=== PATIENT | female | born 1965 | race Caucasian/White ===

== ENCOUNTER → 2022-12-28 16:28 | Outpatient (CLI) | payer BC, SELFPAY ==
--- NOTE | 2022-12-28 16:31 | DI.MG.S_ITS ---
BILATERAL DIGITAL SCREENING MAMMOGRAM 3D/2D WITH CAD: 12/28/2022 CLINICAL: Routine screening. Family history of breast cancer. Comparison is made to exams dated: 01/13/2019 mammogram, 04/26/2017 mammogram, and 10/24/2016 mammogram - outside location. There are scattered areas of fibroglandular density in both breasts (category b / 25%-50% glandular tissue). Current study was also evaluated with a Computer Aided Detection (CAD) system. There is an oval equal density focal asymmetry with coarse calcifications in the right breast at 4 o'clock posterior depth. This is more prominent and increased in size. There is an oval equal density focal asymmetry with coarse calcifications in the left breast at 1 o'clock in the retroareolar region. This is more prominent and increased in size. No other significant masses or calcifications are seen in either breast. IMPRESSION: INCOMPLETE: NEEDS ADDITIONAL IMAGING EVALUATION The oval equal density focal asymmetry in the right breast at 4 o'clock posterior depth is indeterminate. Additional views with possible ultrasound are recommended. The oval equal density focal asymmetry in the left breast at 1 o'clock in the retroareolar region is indeterminate. Additional views with possible ultrasound are recommended. Based on the Tyrer Cuzick model (a risk assessment model) the patient's lifetime risk is 11.1% and her 10 year risk is 4.1%. According to the ACR, ACS, and NCCN guidelines, an annual breast MRI exam along with mammogram is recommended if the patient's lifetime risk is 20% or greater. This exam was interpreted at Station ID: [id number]. NOTE: For mammograms, a report in lay terms will be sent to the patient. Approximately 15% of breast malignancies will not be visualized mammographically. In the management of a palpable breast mass, a negative mammogram must not discourage biopsy of a clinically suspicious lesion. Electronically Signed By: Javan Dorsey M.D. aty/:12/29/2022 07:21:06 letter sent: Additional Imaging Needed ACR BI-RADS Category 0: Incomplete 3340F
== END ==
PROVIDERS: Referring Provider Family Medicine; Visit Provider Family Medicine
DX: Z12.31 Encounter for screening mammogram for malignant neoplasm of breast (principal); Z80.3 Family history of malignant neoplasm of breast
CPT/HCPCS: 77063; 77067

== ENCOUNTER → 2023-02-23 10:08 | Outpatient (CLI) | payer BC, SELFPAY ==
--- NOTE | 2023-02-23 | DI.MG.S_ITS ---
BILATERAL DIGITAL DIAGNOSTIC MAMMOGRAM 3D/2D: 02/23/2023 CLINICAL: Bilateral add views. Comparison is made to exams dated: 12/28/2022 mammogram - [facility], 01/13/2019 mammogram, and 04/26/2017 mammogram - outside location. There are scattered areas of fibroglandular density in both breasts (category b / 25%-50% glandular tissue). There is an oval equal density focal asymmetry with coarse calcifications in the right breast at 4 o'clock posterior depth. This is seen in additional views. There is an oval equal density focal asymmetry with coarse calcifications in the left breast at 1 o'clock anterior depth. This is seen in additional views. No other significant masses or calcifications are seen in either breast. IMPRESSION: INCOMPLETE: NEEDS ADDITIONAL IMAGING EVALUATION The oval equal density focal asymmetry in the right breast at 4 o'clock posterior depth is indeterminate. An ultrasound is recommended. The oval equal density focal asymmetry in the left breast at 1 o'clock anterior depth is indeterminate. An ultrasound is recommended. US will be performed and dictated separately. Based on the Tyrer Cuzick model (a risk assessment model) the patient's lifetime risk is 9.1% and her 10 year risk is 3.3%. According to the ACR, ACS, and NCCN guidelines, an annual breast MRI exam along with mammogram is recommended if the patient's lifetime risk is 20% or greater. This exam was interpreted at Station ID: [id number]. NOTE: For mammograms, a report in lay terms will be sent to the patient. Approximately 15% of breast malignancies will not be visualized mammographically. In the management of a palpable breast mass, a negative mammogram must not discourage biopsy of a clinically suspicious lesion. Electronically Signed By: Sahil Olvera M.D. acr/:02/23/2023 11:01:24 Entry: aa - 02/27/2023 11:35:24 ACR BI-RADS Category 0: Incomplete 3340F
--- NOTE | 2023-02-23 | DI.US.S_ITS ---
ULTRASOUND OF RIGHT BREAST: 02/23/2023 CLINICAL: Patient returns today to evaluate an asymmetry in the right breast. Comparison is made to exams dated: 02/23/2023 mammogram, 12/28/2022 mammogram - [facility], 01/13/2019 mammogram, 04/26/2017 mammogram, and 10/24/2016 mammogram - outside location. Color flow ultrasound of the right breast was performed. Dewitt scale images of the real-time examination were reviewed. In the right breast 5:00 position 13 cm from the nipple a 0.7 x 0.6 x 0.4 cm oval well-circumscribed mass with no posterior acoustic shadowing and internal calcification is seen. On ultrasound this has a probably appearance and additionally upon further detailed review of the prior mammogram in 2019 it appears this finding was previously present as well. The prior mammogram at a different technique but when windowed appears similar. IMPRESSION: PROBABLY BENIGN The right breast finding on screening mammogram has a benign ultrasound appearance and is probably stable compared to a prior mammogram as detailed above. A follow-up mammogram and an ultrasound in 6 months is recommended to demonstrate stability. This exam was interpreted at Station ID: [id number]. Electronically Signed By: Sahil Olvera M.D. acr/:02/23/2023 11:55:36 Entry: aa - 02/27/2023 11:35:55 Ultrasound BI-RADS: 3 Probably benign
--- NOTE | 2023-02-23 11:00 | DI.US.S_ITS ---
LIMITED ULTRASOUND OF LEFT BREAST: 02/23/2023 CLINICAL: Patient returns today to evaluate a focal asymmetry in the left breast. Comparison is made to exams dated: 02/23/2023 mammogram, 12/28/2022 mammogram - [facility], 01/13/2019 mammogram, 04/26/2017 mammogram, and 10/24/2016 mammogram - outside location. Color flow ultrasound of the left breast 1 o'clock region was performed. Dewitt scale images of the real-time examination were reviewed. In the left breast 1:00 position no abnormality is seen with ultrasound. Normal-appearing breast tissue is identified. Further detailed review of the prior mammogram demonstrates the current finding to probably have been present on the 2019 mammogram which was performed at a different facility with a different technique. When windowed, the same finding is identified and appears stable. Windowed images from the prior study were saved as corbett images. IMPRESSION: PROBABLY BENIGN No ultrasound abnormality is identified. The mammographic abnormality is probably stable compared to 2019 however the appearance is slightly different likely due to differences in technique. A follow-up mammogram and an ultrasound in 6 months is recommended to demonstrate stability. This exam was interpreted at Station ID: [id number]. Electronically Signed By: Sahil Olvera M.D. acr/:02/23/2023 11:59:55 letter sent: Followup Recommended Ultrasound BI-RADS: 3 Probably benign
== END ==
LOC: MAMMO 10:09
PROVIDERS: PCP Family Medicine; Referring Provider Family Medicine; Visit Provider Family Medicine
DX: R92.8 Other abnormal and inconclusive findings on diagnostic imaging of breast (principal); N64.89 Other specified disorders of breast
CPT/HCPCS: 76642; 77066; G0279

== ENCOUNTER → 2023-10-05 10:02 | Outpatient (CLI) | payer BC, SELFPAY ==
--- NOTE | 2023-10-05 | DI.MG.S_ITS ---
BILATERAL DIGITAL DIAGNOSTIC MAMMOGRAM 3D/2D: 10/05/2023 CLINICAL: Patient returns for a 6 month follow up of bilateral breasts. Comparison is made to exams dated: 02/23/2023 mammogram, 12/28/2022 mammogram - [facility], 01/13/2019 mammogram, 04/26/2017 mammogram - outside location, 02/23/2023 ultrasound, and 02/23/2023 ultrasound - [facility]. There are scattered areas of fibroglandular density in both breasts (category b / 25%-50% glandular tissue). There is a stable oval focal asymmetry with punctate calcifications in the right breast at 4 o'clock posterior depth. There is a stable oval focal asymmetry with punctate calcifications in the left breast at 1 o'clock anterior depth. Not seen on prior ultrasound. No other significant masses or calcifications are seen in either breast. IMPRESSION: INCOMPLETE: NEEDS ADDITIONAL IMAGING EVALUATION The stable oval focal asymmetry in the right breast at 4 o'clock posterior depth is indeterminate. -A targeted ultrasound is recommended and will immediately follow. The stable oval focal asymmetry in the left breast at 1 o'clock anterior depth is probably benign. -Follow up mammogram in 6 months is recommended. Based on the Tyrer Cuzick model (a risk assessment model) the patient's lifetime risk is 9.1% and her 10 year risk is 3.3%. According to the ACR, ACS, and NCCN guidelines, an annual breast MRI exam along with mammogram is recommended if the patient's lifetime risk is 20% or greater. This exam was interpreted at Station ID: [id number]. NOTE: For mammograms, a report in lay terms will be sent to the patient. Approximately 15% of breast malignancies will not be visualized mammographically. In the management of a palpable breast mass, a negative mammogram must not discourage biopsy of a clinically suspicious lesion. Electronically Signed By: Trent Rowan M.D. slc/:10/05/2023 11:04:39 ACR BI-RADS Category 0: Incomplete 3340F
--- NOTE | 2023-10-05 10:49 | DI.US.S_ITS ---
LIMITED ULTRASOUND OF RIGHT BREAST AND AXILLA: 10/05/2023 CLINICAL: Patient returns for a 6 month follow up of the right breast. Comparison is made to exams dated: 10/05/2023 mammogram, 02/23/2023 ultrasound, 02/23/2023 mammogram, 12/28/2022 mammogram - [facility], 01/13/2019 mammogram, and 04/26/2017 mammogram - outside location. Color flow and real-time ultrasound of the right breast 4 o'clock, and axilla regions were performed. Dewitt scale images of the real-time examination were reviewed. There is a 1.4 cm round enlarged lymph node in the right axillary tail. This round enlarged lymph node is hyperechoic. There also is a stable 0.5 cm x 0.3 cm x 0.2 cm oval cyst in the right breast at 4 o'clock posterior depth 10 cm from the nipple. This oval cyst is hypoechoic. This correlates with mammography findings. Color flow imaging demonstrates that there is no vascularity present. IMPRESSION: SUSPICIOUS OF MALIGNANCY The 1.4 cm round enlarged lymph node in the right axilla is at a low suspicion for malignancy. -An ultrasound guided biopsy is recommended. Discussed options of ultrasound imaging follow-up and biopsy. Patient prefers biopsy. The stable 0.5 cm oval cyst in the right breast at 4 o'clock posterior depth is probably benign. -A follow-up mammogram and an ultrasound in 6 months is recommended to demonstrate stability. -Mammogram will also be due for contralateral left breast in 6 months. Exam findings were discussed with the patient. This exam was interpreted at Station ID: [id number]. Electronically Signed By: Trent Rowan M.D. [facility] [place]/:10/05/2023 12:14:36 letter sent: Biopsy Required Ultrasound BI-RADS: 4a Low suspicion for malignancy
== END ==
PROVIDERS: PCP Family Medicine; Referring Provider Family Medicine; Visit Provider Family Medicine
DX: R92.8 Other abnormal and inconclusive findings on diagnostic imaging of breast (principal); N60.01 Solitary cyst of right breast; R59.0 Localized enlarged lymph nodes; R92.323 Mammographic fibroglandular density, bilateral breasts
CPT/HCPCS: 76642; 77066; G0279

== ENCOUNTER → 2023-10-26 14:07 | Outpatient (CLI) | payer BC, SELFPAY ==
--- NOTE | 2023-10-26 | DI.US.S_ITS ---
ULTRASOUND GUIDED BIOPSY RIGHT BREAST WITH MARKING DEVICE INSERTED: 10/26/2023 CLINICAL: Right axillary node biopsy. PATIENT CONSENT: Risks (minor bleeding, infection, vasovagal reaction and repeat procedure), benefits and alternatives were explained to the patient and written informed consent was obtained. Correlation is made to exams dated: 10/26/2023 mammogram, 10/05/2023 ultrasound, 10/05/2023 mammogram, 02/23/2023 ultrasound, 02/23/2023 mammogram, and 12/28/2022 mammogram - [facility]. An ultrasound guided biopsy using real-time ultrasound was performed for the lymph node located in the right axilla. The skin was prepped in the usual manner. The abnormality was approached from the lateral aspect. An 18 gauge biopsy needle was placed adjacent to the abnormality under ultrasound guidance. Once the needle was documented to be in the correct location, four specimens were obtained using the ki workno biopsy device. The patient received additional local anesthetic during the procedure. A Vision clip was inserted into the biopsy cavity. Post procedure imaging demonstrates the location device at the targeted area. The specimens were sent to the laboratory for pathological analysis. The biopsy was performed by Dr. Buchanan on 10/26/2023. IMPRESSION: ULTRASOUND GUIDED BIOPSY BENIGN Successful ultrasound guided biopsy of right axillary lymph node performed by Dr. Buchanan. Pathology indicates benign lymph node (LN). Pathology results are concordant with imaging findings. Recommend follow up left breast mammogram and ultrasound in 6 months for probably benign findings described on prior report 10/05/2023. Patient will be due for bilateral mammogram at that time. Future imaging is recommended as follows: 04/08/2024 mammogram and an ultrasound. This exam was interpreted at Station ID: [id number]. Raven Vera M.D., Ph.D. eb/:11/06/2023 17:09:10
--- NOTE | 2023-10-26 | PATH_ITS ---
[facility] Accession Number: [id number] No. of containers..01 Tissue . 01 Material submitted: . lymph node - RIGHT AXILLA LYMPH NODE . 01 Diagnosis: A: LYMPH NODE, RIGHT AXILLA, CORE BIOPSY: Small sample consisting of unremarkable lymphoid tissue, negative for metastatic carcinoma. See comment and microscopic description. [facility] 10/31/2023 1610 Local . 01 Comment: Given the limited tissue volume, if suspicion remains high for possible malignancy in an unsampled area, complete krystyna excision may be considered in the right clinical setting. Correlation with clinical and radiologic findings is recommended. . 01 Electronically signed: . Larry Gibson MD, Pathologist NPI- [id number] . 01 Gross description: . Received in formalin with two identifiers and right axilla lymph node, are three dacosta needle cores 0.3 to 0.7 cm in greatest dimension. Submitted entirely in cassette A1. ([id number]) /[facility] 10/27/2023 2108 Local . 01 Microscopic: . - Histologic sections demonstrate small fragments of lymphoid tissue, too limited to adequately evaluate architecture, consisting of fwcsf-jh-twpbgvweztjx sized lymphocytes. Immunohistochemical stains were indicated and performed with adequate controls. - Lymphocytes consist predominantly of T-cells which are highlighted by CD3, CD5 and BCL-2. B-cells are fewer, and highlighted by PAX-5, while negative for CD5, Cyclin D1, CD10, and BCL-6. B-cells are predominantly found in small nodules, without germinal centers. CD21 highlights follicular dendritic cell meshworks. Ki67 proliferation index is uniformly low. - Sections are negative for Hodgkin/RS-cells, abnormal prominent fibrotic bands, metastatic carcinoma (as supported by negative LALITO immunostain), and foreign bodies. - As part of ongoing quality assurance supervisor trim, select slides were reviewed by Dr. Favian Mayorga who agrees with the interpretation. Technical Note: The immunohistochemical stains reported were performed at [facility] ([address] [place], [place] [address] [address], [facility] [address]). They were developed and their performance characteristics determined by [employer] They have not been cleared or approved by the U.S. Food and Drug Administration, although such approval is not required for analyte-specific reagents of this type. . 01 Pathologist provided ICD-10: R92.8, R59.9 . 01 CPT . 986515, B27327, S63233 Specimen Comment: A courtesy copy of this report has been sent to [facility] Performed at: [address], [place], [place] [id number] MD Lobito Rogers MD Phone: [phone]
--- NOTE | 2023-10-26 14:09 | DI.MG.S_ITS ---
UNILATERAL RIGHT DIGITAL DIAGNOSTIC MAMMOGRAM 3D/2D POST-PROCEDURE IMAGING FOR MARKER PLACEMENT: 10/26/2023 CLINICAL: Right post clip. Comparison is made to exams dated: 10/05/2023 mammogram, 02/23/2023 mammogram, and 12/28/2022 mammogram - [facility]. There are scattered areas of fibroglandular density in the right breast (category b / 25%-50% glandular tissue). There is a marker clip in the appropriate position in the right axillary region seen on the craniocaudal view only. This marker clip placement is at the biopsy site. IMPRESSION: POST PROCEDURE MAMMOGRAM FOR MARKER PLACEMENT There was a successful marker clip placement in the right axillary region seen on the craniocaudal view only. Future imaging is recommended as follows: 04/08/2024 mammogram and an ultrasound. Based on the Tyrer Cuzick model (a risk assessment model) the patient's lifetime risk is 9.1% and her 10 year risk is 3.3%. According to the ACR, ACS, and NCCN guidelines, an annual breast MRI exam along with mammogram is recommended if the patient's lifetime risk is 20% or greater. This exam was interpreted at Station ID: [id number]. NOTE: For mammograms, a report in lay terms will be sent to the patient. Approximately 15% of breast malignancies will not be visualized mammographically. In the management of a palpable breast mass, a negative mammogram must not discourage biopsy of a clinically suspicious lesion. Electronically Signed By: Opal Buchanan M.D. [facility]/:10/26/2023 21:30:26 ACR BI-RADS Category Post-procedure mammogram for marker placement
== END ==
LOC: US 14:08
PROVIDERS: PCP Family Medicine; Referring Provider Family Medicine; Visit Provider Family Medicine
DX: R92.8 Other abnormal and inconclusive findings on diagnostic imaging of breast (principal); R92.321 Mammographic fibroglandular density, right breast
CPT/HCPCS: 38505; 76942; 77065

== ENCOUNTER → 2023-12-14 14:36 | Outpatient (CLI) | payer BC, SELFPAY ==
--- NOTE | 2023-12-14 14:36 | DI.US.S_ITS ---
PROCEDURE: US THYROID INDICATIONS: MULTINODULAR THYROID/HYPERTHYROIDISM TECHNIQUE: Real-time scanning was performed of the thyroid gland, with image documentation. COMPARISON: None. FINDINGS: Thyroid: Right lobe measures 7.4 x 2.5 x 2.4 cm. Left lobe measures 8.8 x 2.8 x 2.4 cm. Isthmus is 0.34 cm thick. Echotexture is heterogeneous. Nodule number: 1 Location: Mid to lower pole right thyroid lobe Size: 2.0 x 1.4 x 1.6 cm Composition: Predominantly solid Echogenicity: Hyperechoic Shape: Wider than tall Margins: Smooth Echogenic foci: None nai points: 3 ACR TI-RADS category: Mildly suspicious Nodule number: 2 Location: Lower pole right thyroid lobe Size: 1.1 x 1.1 x 0.8 Composition: Predominantly solid Echogenicity: Isoechoic Shape: Wider than tall Margins: Smooth Echogenic foci: None Total points: 3 ACR TI-RADS category: Mildly suspicious Nodule number: 3 Location: Lower pole right thyroid lobe Size: 1.5 x 1.7 x 1.4 Composition: Predominantly solid Echogenicity: Isoechoic Shape: Wider than tall Margins: Smooth Echogenic foci: None Total points: 3 ACR TI-RADS category: Mildly suspicious Nodule number: 4 Location: Lower pole left thyroid lobe Size: 2.5 x 1.6 x 1.6 cm Composition: Predominantly solid Echogenicity: Hypoechoic Shape: Wider than tall Margins: Lobulated Echogenic foci: Punctate Total points: 8 ACR TI-RADS category: Highly suspicious Nodule number: 5 Location: Lower pole left thyroid lobe Size: 1.9 x 2.1 x 1.3 cm Composition: Predominantly solid Echogenicity: Hypoechoic Shape: Wider than tall Margins: Lobulated Echogenic foci: None Total points: 6 ACR TI-RADS category: Moderately suspicious IMPRESSION: Enlarged thyroid gland with heterogeneous thyroid parenchymal echotexture and multiple solid nodules as described above. Suggest fine-needle aspiration of the 2 left thyroid lobe nodules for further evaluation. ACR TI-RADS definitions and recommendations: TI-RADS 1 (benign): 0 points. FNA not needed. TI-RADS 2 (not suspicious): 2 points. FNA not needed. TI-RADS 3 (mildly suspicious): 3 points. * FNA if 2.5 cm or larger, follow up if 1.5 cm or larger (at 1, 3, and 5 years). TI-RADS 4 (moderately suspicious): 4-6 points. * FNA if 1.5 cm or larger, follow up if 1 cm or larger (at 1, 2, 3, and 5 years). TI-RADS 5 (highly suspicious): 7 points or more. * FNA if 1 cm or larger, follow up if 0.5 cm or larger (every year for 5 years). Dictated by: Tera Wilburn M.D. on 12/14/2023 at 17:00 Approved by: Tera Wilburn M.D. on 12/14/2023 at 17:04
== END ==
PROVIDERS: PCP Family Medicine; Referring Provider Family Medicine; Visit Provider Family Medicine
DX: E04.2 Nontoxic multinodular goiter (principal); E05.90 Thyrotoxicosis, unspecified without thyrotoxic crisis or storm
CPT/HCPCS: 76536

== ENCOUNTER → 2024-01-18 14:29 | Outpatient (CLI) | payer BC, SELFPAY ==
--- NOTE | 2024-01-18 | PATH_ITS ---
Note [facility] Accession Number: [id number] TESTS RESULT FLAG UNITS REF RANGE LAB Clinician Provided Cytology Information No. of containers..01 Other (Miscellaneous) No. of containers..06 Previously Prepared Cytology Slide Source: LEFT THYROID NODULE #5 DIAGNOSIS: LEFT THYROID NODULE #5 NEGATIVE FOR MALIGNANT CELLS. B[place] CATEGORY II. SPECIMEN CONSISTS OF BENIGN FOLLICULAR CELLS (MANY WITH ONCOCYTIC FEATURES), RARE HEMOSIDERIN-LADEN MACROPHAGES, COLLOID, AND BLOOD. 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 Pathologist ICD10: 01 E04.1 Signed out by: Constance Tellez MD, Pathologist NPI- [id number] Performed by: Thomas Villagomez, Counter Professional ([facility]) Gross description: 30 CC, COLORLESS, CLEAR RECIEVED: IN CYTOLYT WITH 8 ALCOHOL FIXED AND 8 QUICK STAINED SLIDES ALSO 1 RNA VIAL WILL ON 03-13-2024.VO /VDU 01/21/2024 1047 Local FLAG LEGEND: L-Low Normal,H-High Normal,LL-Alert Low,HH-Alert High <-Panic Low,>-Panic High,A-Abnormal,AA-Critical Abnormal Performed at: 01 =[facility], [place] [address] Lobito Rogers MD, Performed at: [address], [place], [place] [id number] MD Lobito Rogers MD Phone: [phone]
--- NOTE | 2024-01-18 14:30 | DI.US.S_ITS ---
PROCEDURE: US FINE NEEDLE ASPIRATION INDICATIONS: LEFT THYROID NODULES TECHNIQUE: The indications, alternatives, benefits, risks, and complications of the procedure were explained to the patient. Written informed consent was obtained and placed in the chart. The thyroid region was examined sonographically and a site was chosen for ultrasound guided percutaneous sampling. The skin was prepared and draped in the usual fashion, and anesthetized with 1% lidocaine infiltrated from the skin down to the thyroid gland. Multiple passes were then performed, with contents emptied into an appropriate pathology specimen container. A bandage was applied to the area of access at completion of the study. COMPARISON: None. FINDINGS: Location(s) of lesion(s) sampled: Nodule #5 left side most inferior [place]: 25 gauge hypodermic needles. Number of passes: 8 Medications: 1% lidocaine for local anaesthesia. Complications: None. IMPRESSION: Successful ultrasound-guided thyroid nodule fine needle aspiration, with cytology results pending. Please see chart below for management recommendations based on cytology results. Nodule #4 was not aspirated because the solid component was not well seen during the procedure. Recommend attention on follow-up thyroid ultrasound. [facility] ReportingRecommendationsNon-diagnostic* Repeat US-guided FNA, with on-site cytology evaluation if possible. * Repeated non-diagnostic nodules without high suspicion US features: close observation vs surgical consult. * Consider surgery if nodule has high suspicion US features, grows >20% in 2 dimensions on followup, or patient has clinical risk factors for malignancy. Benign* If nodule has high suspicion US features: repeat US and FNA within 12 months. * If nodule has low to intermediate suspicion US features: repeat US at 12-24 months. If nodule grows (20% increase in at least 2 dimensions, with minimal increase of 2 mm or >50% change in volume), or development of new suspicious US features, then repeat FNA or continue followup. * If nodule has very low suspicion US features: followup US at >24 months. Atypia of undetermined significance, follicular lesion of undetermined significanceRepeat FNA, molecular testing, followup US, or surgical consult.Follicular neoplasm, suspicious for follicular neoplasmSurgical consult; also consider molecular testing. Suspicious for malignancySurgical consult.MalignantSurgical consult. Dictated by: Koby BRAXTON Interpreted: Kevyn Barfield MD on 01/18/2024 at 16:00 Transcribed by: CANDIDO on 01/18/2024 at 16:01 Approved by: Kevyn Barfield M.D. on 01/18/2024 at 20:26
== END ==
PROVIDERS: PCP Family Medicine; Referring Provider Family Medicine; Visit Provider Family Medicine
DX: E04.2 Nontoxic multinodular goiter (principal); E05.90 Thyrotoxicosis, unspecified without thyrotoxic crisis or storm
CPT/HCPCS: 10005

== ENCOUNTER → 2024-03-03 14:16 | Outpatient (CLI) | payer BC, SELFPAY ==
--- NOTE | 2024-03-03 14:17 | DI.RAD.S_ITS ---
PROCEDURE: XR DEXA AXIAL SKELETON INDICATIONS: osteoporosis COMPARISON: None. FINDINGS: Lumbar Spine: Bone mineral density 0.97 g/cm2, T score -0.7. The lowest T-score is -1.1 for the L2 vertebral body. Left Hip: Bone mineral density 0.717 g/cm2, T score -1.8. Left Femoral Neck: Bone mineral density 0.539 g/cm2, T score -2.8. Right Hip: Bone mineral density 0.739 g/cm2, T score -1.7. Right Femoral Neck: Bone mineral density 0.572 g/cm2, T score -2.5. Fracture Risk Calculation (when applicable): 10-year fracture risk of a major osteoporotic fracture 19 percent and of a hip fracture 4.8 percent. (T score greater or equal to -1.0 to: NORMAL) (T score from -1.1 to -2.4: OSTEOPENIA) (T score less than or equal to -2.5: OSTEOPOROSIS) IMPRESSION: 1. Normal bone density of the lumbar spine, although the L2 vertebral body is osteopenic. 2. Osteopenia of the hips. 3. Osteoporosis of the femoral necks. Follow-up guidelines as follows: Osteoporosis: Consider a repeat DEXA and Vertebral Fracture Assessment (VFA) exam in 2 years or sooner if medically necessary, to reassess this patient's status. Osteopenia: Consider a repeat DEXA in 2-3 years to reassess this patient's status, or if there is a new clinical indication. Normal: Consider a repeat DEXA in 5 years or sooner, or if there is a new clinical indication. All treatment decisions require clinical judgment and consideration of individual patient factors, including patient preferences, comorbidities, previous drug use, risk factors not captured in the FRAX model (e.g., frailty, falls, vitamin D deficiency, increased bone turnover, interval significant decline in bone density ) and possible under- or over-estimation of fracture risk by FRAX. In addition, the NOF Guide recommends that FDA-approved medical therapies be considered in postmenopausal women and men age >= 50 years with a: * Hip or vertebral (clinical or morphometric) fracture * T-score of <=-2.5 at the spine or hip * Ten-year fracture probability by FRAX of >= 3% for hip fracture or >=20% for major osteoporotic fracture. People with diagnosed cases of osteoporosis or at high risk for fracture should have regular bone mineral density tests. For patients eligible for Medicare, routine testing is allowed once every 2 years. The testing frequency can be increased to one year for patients who have rapidly progressing disease, those who are receiving or discontinuing medical therapy to restore bone mass, or have additional risk factors. Dictated by: Billy Grullon M.D. on 03/03/2024 at 16:18 Approved by: Billy Grullon M.D. on 03/03/2024 at 16:20
== END ==
PROVIDERS: PCP Family Medicine; Referring Provider Family Medicine; Visit Provider Family Medicine
DX: M81.0 Age-related osteoporosis without current pathological fracture (principal)
CPT/HCPCS: 77080

== ENCOUNTER 2024-11-19 16:55 | Outpatient (RCR) | payer BC, SELFPAY ==
--- NOTE | 2024-11-19 18:36 | ST.OPIE ---
Addendum entered and electronically signed by Porsha Harris 11/20/24 12:15: Direct message sent to PCP with request as well via internal EMR. [employer] M[employer]INE FEEDER to continue to follow. Addendum entered and electronically signed by Porsha Harris 11/20/24 10:27: [employer]INE [employer]EDER left a message with PCP's medical team, Dr. Mateo Olivas, requesting Modified Barium Swallow Study order. Original Note: Visit Care Team Role Provider Type SCHUYLER Harris Other Providers Speech Therapist Specialty: Speech Therapy Address: Phone: Fax: Email: Mateo Olivas MD Attending Provider Physician Family Provider Primary Care Provider Referring Provider Specialty: [facility] Address: [facility] [place], [address] Email: [email or web address] Speech-Language Pathology Initial Evaluation [employer]ER Clinical Swallow Evaluation Start: 11/19/24 17:56 Freq: Status: Active Protocol: Document 11/19/24 17:57 SS (Rec: 11/19/24 18:36 SS Desktop) Clinical Swallow Evaluation Session Time Visit Start Time 17:00 Visit Stop Time 17:45 Total Visit Minutes 45 Visit Information Visit Number 1 Plan of Care Dates 11/19/24-02/18/25 Insurance [facility] out [facility] (no visit limit) Information Referral Referring Provider Dr. Mateo Olivas Reason for Referral Dysphagia, salivary gland abscess removal Setting Assessment Location Outpatient Care Visit Type Note Type Initial evaluation Next Note Type Next Note Type Treatment Note Patient Information Identification Type Name History Diann Joseph is a 58-year-old female, referred for a clinical swallow evaluation by Dr. Olivas due to concerns regarding oropharyngeal dysphagia. 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 About two years ago, pt begun experiencing sticking sensation in her throat with all intake. She had a R salivary gland abscess removed on 10/27, which then became infected and pt had to be hospitalized in ER. She has had salivary gland stones removed over the years. Prior medical history includes lupus, diabetes, gastroparesis, and irritable bowel syndrome. Pt has had multiple surgeries in the past year. Pt has history of GERD which is managed effectively with medication. She denies overt s/sx of aspiration, history of pneumonia, or unintentional weight loss. Pt reported swallowing difficulty present before recent surgery, though is now exercising paralysis of R lip and weakness of R tongue , which has continued to right-sided pocketing and difficulty with mastication. Pt expressed sticking sensation and dryness in throat with all PO intake, but primarily with hard or chewy textures, such as hamburgers or raw vegetables. Subjective Pt arrived to the session on time and was accompanied Observations by her , Koby. She was able to respond to all case history questions. Speech was noted to have mild dysarthria and pt presented with mild hoarseness. Pt reported hoarseness onset of about 2 years ago, though dysarthria seems to be related to recent surgery. Reported by Patient/Caregiver Other Symptoms Difficulty swallowing liquids,Difficulty swallowing pills,Difficulty swallowing solids,Food gets stuck,Pain on swallowing Comment Pt reported slowed mastication, pocketing on right, and consistent sticking sensation in throat across liquids , solids, and pills. Sticking sensation clears with liquid wash. It can feel as if things are not going down at all. BASELINE LEVEL OF FUNCTION Solids: Regular Liquids: Thin Medications: In puree carrier Functional Oral Intake Scale (FOIS): FOIS level 6 FOIS Gregorio: Level 1 = no oral intake, Level 2 = tube dependent with minimal/inconsistent oral intake, Level 3 = tube supplements with consistent oral intake, Level 4 = total oral intake of a single consistency, Level 5 = total oral intake of multiple consistencies requiring special preparation, Level 6 = total oral intake with no special preparation, but must avoid specific foods or liquid items, Level 7 = total oral intake with no restrictions Current Diet Regular (IDDSI 7) Baseline Feeding Independent in self-feeding Method Type of Patient EAT-10 Questionnaire (e.g., EAT-10, MDADI, etc. ) Results The Eating Assessment Tool (EAT-10) was administered. This tool is a symptom-specific outcome instrument for dysphagia. It consists of ten statements regarding the patient?s swallow and the patient scores each on a scale of 0-4, with 0 indicating no problem and 4 indicating a severe problem. A score of >3/40 could indicate a swallowing impairment that warrants further assessment/treatment. The patient scored a 31/40, indicating the need for further assessment. The IDDSI Framework Protocol: IDDSI.1 Objective Assessment Mental Status Alert,Responsive,Cooperative Oral Integrity Xerostomia/Dry mouth Dentition Within normal limits Lip Function Mild impairment Observation of Lips Right sided weakness/Drooping at Rest Pucker Right sided weakness/drooping Alternating Pucker/ Reduced range of motion Lip Retraction Tongue Function Mild impairment Observations of Deviates to the left,Involuntary movement(s) Tongue at Rest Tongue Protrusion Deviates to the left,Involuntary movement(s),Reduced strength Tongue Retraction Reduced strength Tongue Deviates to the left,Reduced strength Lateralization Jaw Function Within normal limits Hard/Soft Palate Within normal limits Function Comment Patient?s oral health is good. Patient has own dentition with dental work noted. The patient reports brushing teeth 2 x daily. She wears a nightguard due to TMJ issues. CRANIAL NERVE EXAM CN V (Trigeminal): intact b/l CN VII (Facial): impaired on right side. Pt has mild facial droop and mild weakness of R lip. CN IX/X (Glossopharyngeal/Vagus): Unable to exclude CN X branch involvement 2/2 dysphonia CN XII (Hypoglossal): impaired on right side. Pt demonstrated mild right side lingual weakness and tremors. Food and Liquid Trials Position During Upright (90 degrees) Assessment Liquids Trialed Thin (IDDSI 0) Solid Trials Purred (IDDSI 4),Soft & Bite-sized (IDDSI 6),Regular ( IDDSI 7) Administration Type Cup single sip,Cup consecutive sips,Straw,Self-feeding Oral Impairment Mildly impaired Oral Phase Comments Pt observed across trials of thin liquids (>3 oz water) via tsp, cup, and straw, puree via tsp (apple sauce), soft/bite sized via tsp (diced peaches0, and regular ( cracker). Pt independent with feeding. Adequate bolus retrieval and no anterior loss of bolus. Pt exhibited very mildly prolonged bolus manipulation and reduced oral clearance resulting in mild oral residue with right-sided buccal pocketing given lingual weakness and reduced right-sided sensation. Utilized liquid wash and lingual sweep independently to clear pocketed residue. Pt expressed difficulty chewing food completely due to significant xerostomia. Pharyngeal Moderately impaired Impairment Pharyngeal Phase Clinical signs/symptoms of possible pharyngeal Comments dysphagia include pt report of consistent globus sensation across trials. No observed overt s/sx of aspiration across all trials. Fatigue/Endurance Endurance WNL Debora Swallow Yes Protocol Results The [place] Swallow Protocol is an evidence-based swallow screening protocol to determine aspiration risk. This tool has been validated across a number of different patient diagnoses and in a number of clinical settings. This is the only screening instrument that both identifies aspiration risk and, when passed, is able to recommend specific oral diets without the need for further instrumental dysphagia testing. Based upon research by Drs. Chris Gray and Sharon Loja, this is a reliable and validated swallow screening protocol. Cognitive Screen: PASS Results with 3oz water test: PASS Results with cracker: PASS The IDDSI Framework Protocol: IDDSI.1 Findings Swallowing Function Oropharyngeal phase dysphagia Severity of Swallow Mildly-moderately impaired Impairment Contributing Factors Reduced oral strength/coordination/sensation, to Swallow Mastication inefficiency,Excessive pharyngeal residue Impairment Prognosis Good Based on Cognitive status,Family support,Age Comment Pt presents with mild oral phase dysphagia characterized by difficulty with bolus manipulation, and clearance secondary to xerostomia and right-sided labial/lingual weakness with reduced sensation and concern for possible pharyngeal phase dysphagia given report of consistent globus sensation across all trials , which clears with liquid wash. Aspiration risk appears low at this time. Suspect cranial nerve involvement following salivary gland removal surgery, specifically the facial nerve ( CN VII), given right lower lip weakness, reduced tongue sensation, and reduced movement of right side of tongue. Additionally suspect injury to the hypoglossal nerve (CN XII) given reduced movement of right side of tongue. Modified barium swallow study (MBSS) is indicated to thoroughly further assess patient?s swallow pathophysiology in order to determine the safest diet, effective compensatory strategies, and potential rehabilitation exercises for therapy. Impact on Safety and No limitations Functioning Recommendations Instrumental Yes Assessment Swallowing Treatment Yes Frequency 1x/week Duration 3 months pending MBSS results Recommended Solids Regular (IDDSI 7) Recommended Liquids Thin (IDDSI 0) Other The plan is for the patient to complete a modified Recommendations barium swallow study to further assess swallowing pathophysiology in order to determine treatment plan. Further goals will be established based on MBSS results . Additionally, recommend ENT consult for videostroboscopy given chronic hoarseness. Pt may benefit from consultation with neurology given apparent nerve damage, though this may be temporary and should be done if deemed medically appropriate. Pt expressed understanding of plan and will discuss concerns during upcoming ENT appointment. [employer] MACHINE FEEDER to message PCP re: MBSS order. Safety Precautions/ Small bites and sips when eating,Slow rate; swallow Swallowing between bites,Multiple swallows,Alternate liquids and Recommendations solids,Check for pocketing Medication As Tolerated,Whole in Carrier Recommendations Referrals Recommended Neurology,Otolaryngology/ENT Referrals Education Patient/Caregiver Described results of evaluation,Patient expressed Education understanding of evaluation,Patient expressed agreement with goals & treatment plans Goals Short-term Goals Patient will complete MBSS to further evaluate swallowing pathophysiology and determine next steps in POC. Long-term Goals Patient will safely tolerate least restrictive diet consistency to allow for safe consumption of daily meals without s/sx of pharyngeal residue.
--- NOTE | 2024-11-19 18:36 | ST.OPPOC ---
Physical, Occupational & Speech Therapy At [facility] Visit Care Team Role Provider Type SCHUYLER Harris Other Providers Speech Therapist Address: Phone: Fax: Mateo Olivas MD Attending Provider Physician Family Provider Primary Care Provider Referring Provider Address: [place], [address] Speech Pathology Plan of Care Plan of Care Dates 11/19/24-02/18/[address] Mateo Olivas Patient History Diann Joseph is a 58-year-old female, referred for a clinical swallow evaluation by Dr. Olivas due to concerns regarding oropharyngeal dysphagia. 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 About two years ago , pt begun experiencing sticking sensation in her throat with all intake. She had a R salivary gland abscess removed on 10/27, which then became infected and pt had to be hospitalized in ER. She has had salivary gland stones removed over the years. Prior medical history includes lupus, diabetes, gastroparesis, and irritable bowel syndrome. Pt has had multiple surgeries in the past year. Pt has history of GERD which is managed effectively with medication. She denies overt s/sx of aspiration, history of pneumonia, or unintentional weight loss. Pt reported swallowing difficulty present before recent surgery, though is now exercising paralysis of R lip and weakness of R tongue, which has continued to right-sided pocketing and difficulty with mastication. Pt expressed sticking sensation and dryness in throat with all PO intake, but primarily with hard or chewy textures, such as hamburgers or raw vegetables. Short-term Goals Patient will complete MBSS to further evaluate swallowing pathophysiology and determine next steps in POC. Long-term Goals Patient will safely tolerate least restrictive diet consistency to allow for safe consumption of daily meals without s/sx of pharyngeal residue. Comment: Electronically Signed by: CSHUYLER Martinez 11/19/24 1122 If you are in agreement with this Plan of Care, please return a signed and dated copy. I have reviewed this Plan of Care and certify that the skilled therapy services above are required to meet the patient?s needs. Physician Signature Date Printed Name and Credentials Clinical Instructor Signature Printed Name and Credentials
--- NOTE | 2025-01-22 12:32 | ST.OPDC.SWTH ---
Visit Care Team Role Provider Type SCHUYLER Harris Other Providers Speech Therapist Specialty: Speech Therapy Address: Phone: Fax: Email: Mateo Olivas MD Attending Provider Physician Family Provider Primary Care Provider Referring Provider Specialty: Family Practice Address: [facility], [place], [address] Email: [email or web address] MBSS was completed on 12/11/24. Pt demonstrated WNL oral and pharyngeal phases of swallow. She demonstrated moderate-severe esophageal phase dysphagia. GI and ENT referrals were recommended for esophageal phase dysphagia and increased hoarse vocal quality. Account discharged at this time as no further OTOLOGIST services warranted. Pt may benefit from OTOLOGIST services targeting voice following ENT consult.
== END 2025-01-27 14:52 | disposition home or self-care (01) ==
LOC: SP 16:55
PROVIDERS: Family Provider Family Medicine; PCP Family Medicine; Referring Provider Family Medicine; Visit Provider Family Medicine
DX: K11.3 Abscess of salivary gland (principal); R13.13 Dysphagia, pharyngeal phase
CPT/HCPCS: 92610